=== PATIENT | female | born 1995 | race Caucasian/White ===

== ENCOUNTER 2018-03-01 08:55 | Inpatient (IN) | payer OTHER ==
--- NOTE | 2018-02-23 14:31 | HP ---
Admitting History and Physical - Primary Care Physician PCP: Gonzalo Canela - Admission Chief Complaint: High risk for breast cancer History of Present Illness: Patient is a 23 yo female who presents as a high risk for breast cancer patient due to family h/o breast and ovarian as well as BRCA 1 positive status. Patient had a mammo and US done 12/2017 that was wnl. MRI done 12/2017 was c/w benign findings. Patient is now presenting for bilateral prophylactic mastectomy with reconstruction. History Source: Patient Limitations to Obtaining History: No Limitations - Past Medical History Heme/Onc: Yes: Other (h/o nosebleeds with negative workup by accounts receivable accountant) - Past Surgical History Past Surgical History: Yes: Breast Biopsy (right breast core bx [id number] c/w fibroadenoma) - Smoking History Smoking history: Never smoked Home Medications - Allergies Allergies/Adverse Reactions: Allergies Allergy/AdvReac Type Severity Reaction Status Date / Time Penicillins Allergy Verified 02/23/18 14:34 Family Disease History - Family Disease History Family Disease History: CA: Mother (breast ca at 31 and 35, BRCA1 pos ) Other Family History: maternal great GM (ovarian cancer 40s). maternal GF ( colon cancer at 87) BRCA 1 pos. maternal uncle (throat and lung cancer at 50) BRCA 1 pos. maternal great aunt x 2 BRCA 1 positive Review of Systems - Review of Systems Constitutional: reports: No Symptoms Cardiovascular: reports: No Symptoms Physical Examination Constitutional: Yes: Well Nourished Cardiovascular: Yes: WNL Respiratory: Yes: WNL Breast(s): Yes: Other (symmetrical C-cup breasts without suspicious masses or adenopathy noted bilaterally.) Problem List - Problems (1) Genetic susceptibility to breast cancer Code(s): Z15.01 - GENETIC SUSCEPTIBILITY TO MALIGNANT NEOPLASM OF BREAST (2) Family history of breast cancer Code(s): Z80.3 - FAMILY HISTORY OF MALIGNANT NEOPLASM OF BREAST (3) Family history of ovarian cancer Code(s): Z80.41 - FAMILY HISTORY OF MALIGNANT NEOPLASM OF OVARY Assessment/Plan PLan: bilateral prophylactic mastectomy with reconstruction
[2018-03-01 10:00] VITALS: BMI 24.1
[2018-03-01] MEDS ORDERED: GENTAMICIN SO4 80 MG/2 ML VIAL ONE (10:15)
[2018-03-01] MEDS ORDERED: ceFAZolin SODIUM 1 GM VIAL ONE ×2 (10:15→12:21)
[2018-03-01] MEDS ORDERED: DEXAMETHASONE SOD PHOSPHATE/PF 10 MG/ML SDV ONE (10:49)
[2018-03-01] MEDS ORDERED: BUPIVACAINE HCL/PF 2.5 MG/ML - 30 ML VIAL IJ ONE (10:50)
[2018-03-01] MEDS ORDERED: MIDAZOLAM HCL 2 MG/2 ML SINGLE DOSE VIAL ONE (10:50)
[2018-03-01] MEDS ORDERED: ONDANSETRON 4 MG/2 ML VIAL ONE (12:10)
[2018-03-01] MEDS ORDERED: DEXAMETHASONE SOD PHOSPHATE 4 MG/1 ML VIAL ONE ×2 (12:10→15:17)
[2018-03-01] MEDS ORDERED: PROPOFOL 20 ML ONE (12:12)
[2018-03-01] MEDS ORDERED: LIDOCAINE HCL/PF 2% SDV 5ML VIAL ONE (12:12)
[2018-03-01] MEDS ORDERED: ROCURONIUM BROMIDE 50 MG/5 ML VIAL ONE ×2 (12:13→13:20)
[2018-03-01] MEDS ORDERED: HYDROmorphone HCL/PF 1 MG/ML VIAL (FOR PYXIS CHARGING ONLY) ONE ×2 (13:22→15:17)
[2018-03-01] MEDS ORDERED: ONDANSETRON 4 MG/2 ML VIAL IVPUSH PRN (15:03)
[2018-03-01] MEDS ORDERED: DOCUSATE SODIUM 100 MG CAPSULE (FP) PO SCH (15:15)
[2018-03-01] MEDS ORDERED: ACETAMINOPHEN 325 MG TABLET (FP) PO SCH (15:15)
[2018-03-01] MEDS ORDERED: DEXTROSE 5%-0.45% SALINE 1,000 ML IV SCH (15:15)
[2018-03-01] MEDS ORDERED: MEDROXYPROGESTERONE ACETATE SQ SCH (15:15)
[2018-03-01] MEDS ORDERED: diazePAM 2 MG TABLET PO SCH (15:30)
[2018-03-01] MEDS ORDERED: DOCUSATE SODIUM 100 MG CAPSULE (FP) PO PRN (15:30)
[2018-03-01] MEDS ORDERED: traMADol HCL 50 MG TABLET PO SCH (15:30)
--- NOTE | 2018-03-01 16:23 | OP ---
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 Operation: bilateral breast reconstruction with implants and alloderm Post-Operative Diagnosis: Same as Pre-op Surgeon: Steven Naylor Hanging Flags Decorator: Jo-Ann Teixeira Anesthesiologist/STEEL HANDLER: Brady Thompson Anesthesia: General Estimated Blood Loss (mls): 75 Drains & Tubes with Location: J/p x2 right lateral chest. J/p x2 left lateral chest Fluid Volume Replaced (mls): 1,900 Operative Report Dictated: Yes
--- NOTE | 2018-03-01 16:24 | SURG ---
Surgery Cook 3 Pastry Note Cook 3 Pastry: Jo-Ann Teixeira PA-C Date of Service: 03/01/18 Diagnosis: acquired chest wall deformity s/p bilateral mastectomy Procedure: bilateral breast reconstruction with implants and alloderm I was present for the entirety of the operative procedure. For further detail, please refer to operative report. Visit type - Case Type Case Type: Scheduled - Emergency Emergency Visit: No - New patient This patient is new to me today: Yes Date on this admission: 03/01/18
--- NOTE | 2018-03-01 16:35 | OP ---
DATE OF OPERATION: 03/01/2018 PREOPERATIVE DIAGNOSIS: Genetic predisposition to breast cancer, BRCA1 positive. POSTOPERATIVE DIAGNOSIS: Genetic predisposition to breast cancer, BRCA1 positive. PROCEDURES: Bilateral nipple-sparing mastectomy, through an inframammary approach, with bilateral direct-implant reconstruction with AlloDerm. ANESTHESIA: General endotracheal anesthesia. PRIMARY SURGEON: Nancy Canela MD LANDFILL GRADER: Heather Sabillon, physician restaurant assistant manager PRIMARY SURGEON: For the bilateral direct implant reconstruction with AlloDerm was Nancy Naylor MD. COMPLICATIONS: There were no complications. INDICATIONS FOR PROCEDURE: Briefly, the patient is a 23-year-old, nulliparous, premenopausal, white female with Japanese, Syriac, and Ashkenazi Catholic heritage. She has a strong family history with a mother who had breast cancer at age 31 and again at age 35. Her maternal great grandmother had ovarian cancer in her 40s. Her maternal uncle had lung cancer and was BRCA1 positive. Her maternal grandfather had colon cancer and was BRCA1 positive. She has two maternal great aunts who are also BRCA1 positive. The patient herself had a right breast biopsy in 2016 for a benign hamartoma. The patient underwent genetic testing and turned out to be BRCA1 positive and was seen in consultation regarding risk-reduction strategies for breast cancer. She understood the options of close surveillance versus prophylaxis mastectomy. The patient was advised to get close followup, given her young age, but has decided to go forward with nipple-sparing mastectomies. She did undergo a mammography, ultrasound, and MRI preoperatively which were negative. The patient was seen by Plastic Surgery and understood the reconstruction technique and was offered nipple-sparing approach. She was brought in for the surgery, on March 01, 2018. DESCRIPTION OF PROCEDURE: In the holding area, site verification was made and informed consent was obtained. She was marked preoperatively by the plastic surgeon. The patient was then brought into the operating room and laid on the OR table in the supine position. Venodynes were placed on the lower extremities prior to induction. She received a gram of vancomycin, prior to incision, even though she had a PENICILLIN allergy. She had previously received amoxicillin without any problems. She underwent general endotracheal anesthesia. Both breasts were sterilely prepped and draped in the usual fashion. The left mastectomy was first performed. A 9-cm incision was made in the inframammary fold of the left breast. The skin edge was everted and the breast was retracted inferiorly using Donnie clamps. The skin flap was raised using the Peak radiofrequency device superiorly to the level of the clavicle, medially to the level of the sternum, laterally to the level of the latissimus, and inferiorly below the level of the inframammary fold. The breast was taken down off the pectoralis major muscle using electrocautery from inferomedial to superolateral and completely removed intact. It was weighed to allow for appropriate cosmetic result. Skin flaps were trimmed for a good cosmetic result and to remove all of the visual breast tissue. A retroareolar biopsy was taken underneath the left nipple-areolar complex and sent for frozen section came back negative, so the left nipple was spared. Hemostasis was achieved. At this point, the right breast was approached. Again, a 9-cm inframammary incision was made and the skin edges everted, and the breast was retracted inferiorly using Donnie clamps. The skin flap was raised using the Peak radiofrequency device superiorly to the level of the clavicle, medially to the level of the sternum, laterally to the level of the latissimus, and inferiorly below the level of the inframammary fold. The breast was taken down off the pectoralis major muscle from inferomedial to superolateral and completely removed intact. It was oriented with a long lateral, short superior suture and weighed to allow for appropriate cosmetic result. Skin flaps were trimmed for a good cosmetic result and to remove all the visual breast tissue. A retroareolar biopsy was taken underneath the right nipple-areolar complex and sent for frozen section, came back negative, so the right nipple was spared, as well. Hemostasis was achieved and the wound was copiously irrigated. At this point, Dr. Naylor became the primary surgeon to perform bilateral direct-implant reconstructions in the subpectoral location. AlloDerm will be sutured into the inferolateral aspect of both pectoralis major muscles. Two Fer drains will be placed around each implant and brought out through separate stab incisions on the lateral skin flaps. All wounds will be closed by Plastic Surgery. We did use the SPY skin perfusion device during the case and she had excellent skin perfusion bilaterally. We did perform a prepectoral nerve block in the holding area, prior to the surgery for postoperative pain relief. The patient will be recovered in the postanesthesia care unit after the implant reconstruction and be admitted postoperatively for pain management and wound management. All sponge and needle counts were correct at this point in the case and estimated blood loss was about 125 mL. She was hemodynamically stable. NANCY CANELA M.D. WILLIS/[id number]
[2018-03-01] MEDS ORDERED: diazePAM 2 MG TABLET PO ONE (16:55)
[2018-03-01] MEDS ORDERED: ACETAMINOPHEN 325 MG TABLET (FP) PO ONE (17:00)
[2018-03-01] MEDS ORDERED: traMADol HCL 50 MG TABLET PO ONE (17:05)
[2018-03-01] MEDS ORDERED: diazePAM 2 MG TABLET ONE (17:05)
[2018-03-01] MEDS ORDERED: ACETAMINOPHEN 325 MG TABLET (FP) ONE (17:05)
[2018-03-01] MEDS ORDERED: traMADol HCL 50 MG TABLET ONE (17:06)
[2018-03-01] MEDS: oxyCODONE HCL 5 MG TABLET PO PRN ×2 (17:50→21:20)
[2018-03-01] MEDS ORDERED: oxyCODONE HCL 5 MG TABLET ONE (17:59)
[2018-03-01] MEDS: CEFAZOLIN 1 GM/D5W 1 GM/50 ML BAG IVPB SCH (21:20)
[2018-03-01] MEDS ORDERED: ZOLPIDEM TARTRATE 5 MG TABLET PO PRN (22:00)
[2018-03-01] MEDS: ACETAMINOPHEN 325 MG TABLET (FP) PO SCH (23:17)
[2018-03-01] MEDS: traMADol HCL 50 MG TABLET PO SCH (23:17)
[2018-03-02] MEDS: oxyCODONE HCL 5 MG TABLET PO PRN ×5 (01:03→20:47)
[2018-03-02] MEDS: CEFAZOLIN 1 GM/D5W 1 GM/50 ML BAG IVPB SCH (03:34)
[2018-03-02] MEDS: diazePAM 2 MG TABLET PO SCH ×4 (03:35→22:03)
[2018-03-02] MEDS: ACETAMINOPHEN 325 MG TABLET (FP) PO SCH ×3 (05:15→17:39)
[2018-03-02] MEDS: traMADol HCL 50 MG TABLET PO SCH ×4 (06:00→23:59)
[2018-03-02 08:15] LABS: HEMATOCRIT 33.8 % (32.4-45.2); MCH 28.6 pg (25.7-33.7); MCHC 32.6 g/dl (32.0-36.0); MEAN CELL VOLUME 87.5 fl (80-96); MEAN PLT VOLUME 9.1 fl (7.5-11.1); PLATELET COUNT 309 K/MM3 (134-434); RBC 3.86 M/mm3 (3.60-5.2); RDW 12.5 % (11.6-15.6); WHITE BLOOD COUNT 13.5 K/mm3 (4.0-10.8)
[2018-03-02] MEDS: CEFAZOLIN 1 GM/D5W 1 GRAM/50 ML BAG IVPB SCH ×3 (08:43→20:35)
--- NOTE | 2018-03-02 10:00 | PN ---
Progress Note, Physician Chief Complaint: S/P bilateral mastectomy with implant reconstruction POD #1 History of Present Illness: Patient was seen at the bedside and reports good pain control. She is tolerating po intake well and is without any other complaints. - Current Medication List Current Medications: Active Medications Acetaminophen (Tylenol -) 650 mg PO Q6H [facility] Last Admin: 03/02/18 05:15 Dose: Not Given Diazepam (Valium -) 2 mg PO TID GABRIEL Last Admin: 03/02/18 05:16 Dose: Not Given Docusate Sodium (Colace -) 100 mg PO Q24H PRN PRN Reason: CONSTIPATION Cefazolin Sodium (Ancef 1 Gm Premixed Ivpb -) 1 gram in 50 mls @ 100 mls/hr IVPB Q6H-IV GABRIEL Stop: 03/08/18 08:59 Last Admin: 03/02/18 08:43 Dose: 100 mls/hr Dextrose/Sodium Chloride (D5-1/2ns -) 1,000 mls @ 100 mls/hr IV ASDIR GABRIEL Ondansetron HCl (Zofran Injection) 4 mg IVPUSH Q6H PRN PRN Reason: NAUSEA AND/OR VOMITING Oxycodone HCl (Roxicodone -) 5 mg PO Q4H PRN PRN Reason: PAIN LEVEL 1 - 3 Last Admin: 03/02/18 01:03 Dose: 5 mg Oxycodone HCl (Roxicodone -) 10 mg PO Q4H PRN PRN Reason: PAIN LEVEL 6-10 Last Admin: 03/02/18 08:58 Dose: 10 mg Tramadol HCl (Ultram -) 50 mg PO Q6HPO [facility] Last Admin: 03/02/18 06:00 Dose: 50 mg Zolpidem Tartrate (Ambien -) 5 mg PO HS PRN PRN Reason: Insomnia - Objective Vital Signs: Vital Signs Temperature 98.3 F 03/02/18 06:00 Pulse Rate 84 03/02/18 06:00 Respiratory Rate 18 03/02/18 06:00 Blood Pressure 124/70 03/02/18 06:00 O2 Sat by Pulse Oximetry (%) 98 03/02/18 06:00 Constitutional: Yes: Well Nourished, Calm Breast(s): Yes: Other (Bilateral flaps with mild ecchymosis noted bilaterally. The nipple areola complex is pink. Steristrips are intact without discharge noted. Drains x 4 with serosanginous discharge noted.) Labs: CBC, BMP 03/02/18 07:47 Problem List - Problems (1) Genetic susceptibility to breast cancer Code(s): Z15.01 - GENETIC SUSCEPTIBILITY TO MALIGNANT NEOPLASM OF BREAST (2) Family history of breast cancer Code(s): Z80.3 - FAMILY HISTORY OF MALIGNANT NEOPLASM OF BREAST (3) Family history of ovarian cancer Code(s): Z80.41 - FAMILY HISTORY OF MALIGNANT NEOPLASM OF OVARY Assessment/Plan A. S/P bilateral mastectomy with implant/alloderm reconstruction POD #1 P. OOB today with assistance Teach DANIELLE monitoring Continue IV axbx and pain meds as per anesthesia Plan for discharge in am
--- NOTE | 2018-03-02 10:32 | PN ---
Progress Note (short form) - Note Progress Note: 23F POD1 s/p b/l prophylactic mastectomy with reconstruction under GA-ETT. Patient states that pain is well controlled and reports no anesthetic complications. AVSS. Continue current regimen.
[2018-03-02] MEDS ORDERED: oxyCODONE HCL 5 MG TABLET ONE (20:45)
[2018-03-03] MEDS: oxyCODONE HCL 5 MG TABLET PO PRN ×3 (00:44→09:25)
[2018-03-03] MEDS: CEFAZOLIN 1 GM/D5W 1 GRAM/50 ML BAG IVPB SCH ×2 (02:27→08:40)
[2018-03-03] MEDS: ACETAMINOPHEN 325 MG TABLET (FP) PO SCH ×2 (05:23)
[2018-03-03] MEDS: diazePAM 2 MG TABLET PO SCH (05:23)
[2018-03-03] MEDS: traMADol HCL 50 MG TABLET PO SCH (05:23)
[2018-03-03 07:10] VITALS: BP 113/66; PULSE 77; TEMP 98.5
[2018-03-03] MEDS ORDERED: traMADol HCL 50 MG TABLET ONE (08:38)
--- NOTE | 2018-03-03 09:05 | DS ---
Physical Examination Vital Signs: Vital Signs Temperature 98.5 F 03/03/18 06:00 Pulse Rate 77 03/03/18 06:00 Respiratory Rate 18 03/03/18 06:00 Blood Pressure 113/66 03/03/18 06:00 O2 Sat by Pulse Oximetry (%) 98 03/03/18 06:00 Constitutional: Yes: Well Nourished, No Distress Wound/Incision: Yes: Steri Strips (Steri-Strips intact. Skin flaps and nipples warm and viable. Mild ecchymosis present left upper flap. Drains functioning, serous effluent.) Neurological: Yes: Alert, Oriented Labs: CBC, BMP 03/02/18 07:47 Discharge Summary Reason For Visit: GENETIC SUSCEPTIBILITY Procedures: Principal: Bilateral nipple sparing mastectomy with direct implant reconstruction Hospital Course: Patient remained stable throughout her hospital course, pain well controlled Condition: Good - Instructions Diet, Activity, Other Instructions: BREAST SURGERY INSTRUCTIONS Gonzalo Canela M.D., FACS Dianne Harris M.D., LINDSAY Mchugh M.D., FACS 1. Please call the office at to make a follow up appointment with your surgeon. This number can be also used for any urgent issues you may have. 2. Call us immediately if any of the following occur: *Bleeding from the incision or drain site (a small amount is normal) *Fever or chills *Redness and worsening tenderness around the surgical site *Drainage of pus or fluid from the incision or drain site 3. You may change the surgical dressing two (2) days after your surgery, and may shower then. If you have drains, you may shower after they have been removed, until then take a sponge bath. 4. It is normal for there to be some bruising and tenderness around the surgical site, and the breast may also be firm in this area. 5. Please wear a comfortable bra (sports or surgical bra) all day and all night until your first follow-up visit with your surgeon. 6. The pain medicine you have been prescribed may make you constipated; make sure you drink plenty of water. You may use an over the counter laxative if needed. 7. You may resume your normal diet after surgery, although you may want to avoid rich foods for the first twenty-four (24) hours after surgery. Alcoholic drinks should be avoided while taking the prescribed pain medicine. 8. You may resume normal activities as long as there is no discomfort, but do not do upper body exercises until after your follow-up appointment. Do not lift anything heavier than a large phone book. You may resume driving once you have stopped taking the prescribed pain medicine and feel comfortable doing arm movements. Disposition: HOME - Home Medications Comprehensive Discharge Medication List: Ambulatory Orders Docusate Sodium [Colace] 100 mg PO ASDIR 02/26/18 Medroxyprogesterone Acetate [Depo-Subq Provera 104] 104 mg SQ ASDIR 02/26/18
[2018-03-03] MEDS ORDERED: oxyCODONE HCL 5 MG TABLET ONE (09:35)
--- NOTE | 2018-03-05 09:18 | OP ---
DATE OF SURGERY: 03/01/2018 PREOPERATIVE DIAGNOSES: 1. Bilateral acquired chest wall deformity status post bilateral mastectomy (611.89). 2. Genetic susceptibility to breast cancer. POSTOPERATIVE DIAGNOSES: 1. Bilateral acquired chest wall deformity status post bilateral mastectomy (611.89). 2. Genetic susceptibility to breast cancer. PROCEDURE: 1. Right immediate breast reconstruction utilizing immediate insertion of silicone breast implant and AlloDerm reconstruction. 2. Left immediate breast reconstruction utilizing immediate insertion of silicone breast implant and AlloDerm reconstruction. 3. Intravenous injection of indocyanine green dye and intraoperative diagnostic evaluation of non-coronary intraoperative fluorescein vascular angiography x 2. SURGEON: Jordi Naylor M.D.; Nancy Canela M.D. COKE LOADER: Jo-Ann Teixeira PA-C ANESTHESIA: GENERAL ANESTHESIOLOGIST: OPERATIVE PROCEDURE IN DETAIL: The patient was taken to the operating room. After induction of general anesthesia in the supine position, both arms were extended and padded. Venodyne boots were placed. The entire chest wall was painted with ChloraPrep solution over its entire extent, and sterile drapes were placed in the usual fashion. The markings, which had been made in the standing position preoperatively, were reoutlined with the patient's knowledge. Time-out procedure was performed. Attention was turned by Dr. Canela to the mastectomies. Bilateral inframammary incisions were made and Dr. Canela performed mastectomies. This will be dictated under separate cover. Upon completion of the mastectomies, the wounds were copiously irrigated and attention was turned to the right breast. A subpectoral dissection was begun on the right breast, superiorly from the second rib, medially to the sternal fibers, and down to the inframammary fold, elevating the pectoralis major muscle from its insertion. At this point, an 8.0 x 16.0 sheet of AlloDerm Select Tissue Matrix Contour Medium Perforated was brought into the field and sutured superiorly along the pectoralis major muscle after rehydration. This was carried along the lateral mammary fold and down the side of the breast reconstruction. At this point, a Natrelle INSPIRA cohesive style SCF 560 mL volume implant was chosen. The left breast tissue removed was 503 gm, and the right breast approximately 474 gm. This implant was placed and then sutured with 3-0 Vicryl suture continued along the inframammary fold, completely covering the implant itself. The exact same procedure was carried out symmetrically on the opposite breast, also placing a Natrelle INSPIRA cohesive style SCF 560 mL volume implant in the same subpectoral pocket. Good symmetry was seen in the sitting position. After the implants were in place, the patient was injected with 10 mL of Isocyanide green dye and the Spy imaging system was brought into the field. The skin flowed to the right and left breasts and the nipple areolar complex, and the entire skin flaps were evaluated and seen to be viable with good blood flow. Two Fer drains were brought out through separate stab wounds laterally. The Smart Infuser pump catheter was inserted medially and into the subpectoral position. Both wounds were closed symmetrically using 3-0 PDS suture on the deep tissue, 3-0 in a deep dermal fashion, and 4-0 in a subcuticular fashion. Both wounds were dressed sterilely with Mastisol and Steri-Strips with a surgical bra and a compression strap. The patient tolerated the procedure well. She was awakened, extubated and transferred to the recovery room in satisfactory condition. The sourcing assistant was present during the entire portion of the operation and closure. NANCY NAYLOR M.D. [id number]
--- NOTE | 2018-03-05 15:19 | PATH ---
Surgical Pathology Report Patient Name: BEKA SALDIVAR Med. Rec. #: [id number] /Age/Gender: 1995 (Age: 23) / F Account: [id number] Location: [facility] MED-SURG Taken: 03/01/2018 Received: 03/01/2018 Reported: 03/05/2018 Physicians: Gonzalo Canela M.D. Specimen(s) Received A: RIGHT RETROAREOLAR BIOPSY (FS) B: LEFT RETROAREOLAR BIOPSY (FS) C: RIGHT BREAST D: LEFT BREAST Clinical History BRCA+ bilateral prophylactic Intraoperative Consult Diagnosis A. Right retroareolar biopsy, frozen section: Negative for malignancy. B. Left retroareolar biopsy, frozen section: Negative for malignancy. Radha Bhatt M.D., 03/01/18 Final Diagnosis A. RETROAREOLA, RIGHT, BIOPSY (FS): BENIGN BREAST TISSUE; NEGATIVE FOR MALIGNANCY. B. RETROAREOLA, LEFT, BIOPSY (FS): BENIGN BREAST TISSUE; NEGATIVE FOR MALIGNANCY. C. BREAST, RIGHT, NIPPLE-SPARING MASTECTOMY: BENIGN BREAST TISSUE. D. BREAST, LEFT, NIPPLE-SPARING MASTECTOMY: BENIGN BREAST TISSUE. Electronically Signed Jo-Ann Bhatt M.D. Gross Description A. Received fresh for frozen section labeled "right retroareolar biopsy," is a 1.8 x 1.2 x 0.3 cm portion of red and pink tissue. A frozen section is performed on the specimen. The frozen section residue is entirely submitted in one cassette. B. Received fresh for frozen section labeled "left retroareolar biopsy," is a 1.5 x 1.0 x 0.3 cm portion of red and pink tissue. A frozen section is performed on the specimen. The frozen section residue is entirely submitted in one cassette. C. Received in formalin, labeled "right breast," is a 466 gram, 16.0 x 15.0 x 4.0 cm. left mastectomy specimen with a short suture marking the superior aspect and a long suture marking the lateral aspect of the specimen, per the surgeon. There is no skin or nipple present. The deep margin is inked black and the anterior soft tissue margin is inked blue. The specimen is serially sectioned from medial to lateral. Sectioning reveals abundant dense, white, focally firm fibrous tissue. Youth Leader sections are submitted in 14 cassettes as follows: 1-3-upper outer quadrant; 4-6-lower outer quadrant; 7-9-upper inner quadrant; 10-12-lower inner quadrant; 13-anterior soft tissue margin; 14-deep margin. D. Received in formalin, labeled "left breast," is a 453 gram, 16.0 x 15.0 x 4.0 cm. right mastectomy specimen with a short suture marking the superior aspect and a long suture marking the lateral aspect of the specimen, per the surgeon. There is no skin or nipple present. The deep margin is inked black and the anterior soft tissue margin is inked blue. The specimen is serially sectioned from lateral to medial. Sectioning reveals abundant dense, white, focally firm fibrous tissue. Youth Leader sections are submitted in 14 cassettes as follows: 1-3-upper outer quadrant; 4-6-lower outer quadrant; 7-9-upper inner quadrant; 10-12-lower inner quadrant; 13-anterior soft tissue margin; 14-deep margin. Time to formalin fixation: 60 minutes Total formalin fixation time: Approximately 27 hours. 03/02/2018 [facility]03/02/2018
== END 2018-03-03 09:54 | disposition home or self-care (01) | DRG 585 ==
LOC: FM/S 08:55
PROVIDERS: ADMIT Surgery Surgical Oncology; ATTEND Surgery Surgical Oncology
PROC: 0HTV0ZZ Resection of Bilateral Breast, Open Approach (ICD-10-PCS; principal; 2018-03-01 12:30)
PROC: 0HUV0JZ Supplement Bilateral Breast with Synthetic Substitute, Open Approach (ICD-10-PCS; 2018-03-01 12:30)
DX: Z40.01 Encounter for prophylactic removal of breast (principal); Z15.01 Genetic susceptibility to malignant neoplasm of breast; Z80.3 Family history of malignant neoplasm of breast; Z80.41 Family history of malignant neoplasm of ovary; M95.4 Acquired deformity of chest and rib
CPT/HCPCS: 36415; 84703; 85027